=== PATIENT | male | born 1945 | race Caucasian/White ===

== ENCOUNTER 2016-07-29 20:13 | Inpatient (IN) | payer OTHER ==
[~2016-07-29] VITALS: Ht 177.8 cm; Wt 81.6 kg
--- NOTE | ~2016-07-29 | EKG ---
[place], [place] ELECTROCARDIOGRAM REPORT NAME: ABBY ARAIZA UNIT #: [id number] ROOM: [facility] DOCTOR: KAILEE ENGLISH MD BIRTHDATE: [birth year] DOS: 07/29/2016 TIME: 20:35 p.m. Normal sinus rhythm at rate 77. Leftward axis. Early transition. Borderline electrocardiogram. KAILEE ENGLISH MD CM:EKGRPT:ELECTROCARDIOGRAM REPORT 13 [phone] KAILEE ENGLISH MD
[~2016-07-29 20:13] MED LIST: DAYPRO600 M1 PO; FLEXERIL10 MG PO; IRON TABLET; KEFLEX250 MG PO; LEVOFLOXACIN500 MG PO; OMEPRAZOLE20 MG PO; PERCOCET 325 MG1 TA7 PO; PRILOSEC20 MG PO; ROBAXIN750 MG PO; VICODIN 5/500 505 MG PO; VICODIN 500 MG-1 TAB PO
[2016-07-29 20:26] VITALS: BP 141/88
[2016-07-29] MEDS ORDERED: ASPIR LOW81 MG PO (20:28)
[2016-07-29] MEDS ORDERED: CHOLESTEROL MED PO (20:28)
[2016-07-29] MEDS ORDERED: EFFIENT5 MG PO (20:28)
[2016-07-29 20:37] LABS: BASO % 0.4 % (0.0-1.0); EOS # 0.2 10*3/uL (0.0-0.4); EOS % 2.8 % (1.0-4.0); HEMOGLOBIN 14.4 g/dl (14.0-18.0); LYMPH # 2.8 10*3/uL (1.3-4.4); LYMPH % 39.6 % (27.0-41.0); MEAN CELL VOLUME 92.7 fl (80.0-94.0); MEAN CORPUSCULAR HGB 31.8 pg (27.0-31.0); MEAN CORPUSCULAR HGB CONC 34.3 g/dl (33.0-37.0); MONO # 0.7 10*3/uL (0.1-1.0); MONO % 10.1 % (3.0-9.0); NEUT # 3.3 10*3/uL (2.3-7.9); PLATELET COUNT AUTOMATED 124 10*3/uL (130-400); RED BLOOD COUNT 4.53 10*6/uL (4.50-5.90); RED CELL DISTRI WIDTH 12.9 % (0-14.5); WHITE BLOOD COUNT 7.1 10*3/uL (4.8-10.8)
[2016-07-29 20:49] LABS: PROTHROMBIN TIME 10.6 SECONDS (9.0-12.4)
[2016-07-29 20:54] LABS: ALBUMIN 3.7 gm/dl (3.1-4.5); ALKALINE PHOSPHATASE 92 U/L (45-117); BILIRUBIN, TOTAL 0.2 mg/dl (0.2-1.0); CARBON DIOXIDE 28 mmol/L (21-32); CHLORIDE 106 mmol/L (98-107); EST GLOM FILT AFRICAN AMERICAN > 60 ml/min; GLUCOSE 114 mg/dL (65-99); MAGNESIUM 2.1 mg/dL (1.5-2.1); POTASSIUM 3.8 mmol/L (3.5-5.1); SGOT/AST 31 IU/L (3-35); SGPT/ALT 28 U/L (12-78); SODIUM 143 mmol/L (136-145); TOTAL PROTEIN 7.1 gm/dL (6.4-8.2)
[2016-07-29 20:56] LABS: BUN 12 mg/dl (7-24)
[2016-07-29 20:58] LABS: TROPONIN I < 0.015 ng/ml (<0.045)
[2016-07-29 21:07] VITALS: BP 131/67
[2016-07-29 22:01] VITALS: BP 130/62
[2016-07-29 22:29] VITALS: BP 127/69
[2016-07-29 23:06] VITALS: BP 136/64
[2016-07-30 00:25] VITALS: BP 148/82
[2016-07-30 04:21] VITALS: BP 113/69
[2016-07-30 06:04] VITALS: BP 151/76
[2016-07-30 07:23] VITALS: BP 100/60
== END 2016-07-30 10:04 | disposition home or self-care (01) | DRG 391 ==
LOC: ED 20:13 → EDHOLD 21:51
PROVIDERS: Emergency Medicine
DX: K21.9 Gastro-esophageal reflux disease without esophagitis (principal); I21.3 ST elevation (STEMI) myocardial infarction of unspecified site; I25.2 Old myocardial infarction; I25.10 Atherosclerotic heart disease of native coronary artery without angina pectoris; R07.89 Other chest pain; Z95.5 Presence of coronary angioplasty implant and graft; Z87.891 Personal history of nicotine dependence; Z82.49 Family history of ischemic heart disease and other diseases of the circulatory system; Z79.82 Long term (current) use of aspirin; Z88.8 Allergy status to other drugs, medicaments and biological substances

== ENCOUNTER → 2017-02-08 | Outpatient (CLI) | payer OTHER ==
[~2017-02-08] MED LIST changes: +ASPIR LOW81 MG PO; +CHOLESTEROL MED PO; +EFFIENT5 MG PO
== END | disposition home or self-care (01) ==
LOC: CARD 01:09
DX: I21.4 Non-ST elevation (NSTEMI) myocardial infarction (principal)

== ENCOUNTER → 2019-02-22 | Day surgery (SDC) | payer OTHER ==
[~2019-02-22] VITALS: Ht 170.1 cm; Wt 70.3 kg
[~2019-02-22] MED LIST changes: +PRILOSEC20 M1 PO
--- NOTE | ~2019-02-22 | PROC NOTE ---
[place], [place] PROCEDURE NOTE [id number] UNIT #: [id number] ROOM: DOCTOR: BRODIE TORRES MD BIRTHDATE: [birth year] DOS: 02/22/2019 PROCEDURE: 1. Esophagogastroduodenoscopy and biopsy. 2. Colonoscopy. INDICATIONS: GERD and history of colon polyps. An informed consent was obtained from the patient after indication of procedure, the alternatives and potential complications were explained to him. PROCEDURE MEDICATION: Sedation was administered by Anesthesiology Department. Scope used was Olympus pediatric colonoscope variable stiffness GIF-180, depth of insertion was to the cecum, which was identified by the usual landmarks, appendiceal orifice, ileocecal valve and triangular fold, in addition to transillumination in the right lower quadrant. FINDINGS: After adequate sedation, the patient was placed in left lateral decubitus position. Upper endoscopy was performed first. The scope was introduced under direct visualization through the upper esophageal sphincter into the esophagus. Esophageal mucosa appeared normal with no ulcerations or strictures. Lower esophageal sphincter was identified at 38 cm from incisors, normal appearing Z line. Stomach was then intubated. Gastric mucosa inspected. Moderate gastritis was seen with no discrete ulcers or active bleeding. A TUNG test was performed from the gastric antrum and body. Retroflexed views in the fundus showed a small hiatal hernia. The pylorus was intubated easily. The duodenal bulb and descending duodenum were within normal range. The scope was then withdrawn after the stomach was decompressed. We then proceeded with the colonoscopy. Rectal examination showed a diminished sphincter tone and no external hemorrhoids. Scope was introduced into the rectum. We then advanced to the cecum with moderate difficulty due to fixed sigmoid loops and looping in the left colon. The prep was adequate. The patient had evidence of moderate left-sided diverticular disease, but no evidence of acute diverticulitis or diverticular hemorrhage. The remaining colon mucosa appeared otherwise normal with no evidence of polyps, ulcerations or obstructing lesions. Retroflexed views in the rectum showed grade 1 internal hemorrhoids. The scope was then withdrawn after the rectum was decompressed. The patient tolerated the procedures well. IMPRESSION: 1. Small hiatal hernia. 2. Gastritis, TUNG test performed. 3. Moderate left-sided diverticular disease. 4. No polyps seen. 5. Small internal hemorrhoids. PLAN: We will review the TUNG test results and treat the patient accordingly. Repeat screening colonoscopy advised in 5 years. Office followup will be scheduled in 2-3 weeks. [place], [place] PROCEDURE NOTE NAME: ABBY ARAIZA Abiola UNIT #: [id number] ROOM: DOCTOR: BRIAN KIM,BRODIE BIRTHDATE: [birth year] BRODIE TORRES MD CM:PROCNOTE:PROCEDURE NOTE [id number] BONNIE TORRES MD
[2019-02-22 08:06] VITALS: BP 137/72
[2019-02-22 09:21] VITALS: BP 102/64
[2019-02-22 09:35] VITALS: BP 127/64
[2019-02-22 09:51] VITALS: BP 121/69; BP 124/67
== END | disposition home or self-care (01) ==
LOC: SDC 02-19 09:30
DX: Z12.11 Encounter for screening for malignant neoplasm of colon (principal); K21.9 Gastro-esophageal reflux disease without esophagitis; K44.9 Diaphragmatic hernia without obstruction or gangrene; K57.30 Diverticulosis of large intestine without perforation or abscess without bleeding; K64.0 First degree hemorrhoids; K29.70 Gastritis, unspecified, without bleeding; E78.5 Hyperlipidemia, unspecified; I25.2 Old myocardial infarction; E78.00 Pure hypercholesterolemia, unspecified; Z98.890 Other specified postprocedural states; Z87.891 Personal history of nicotine dependence; Z95.5 Presence of coronary angioplasty implant and graft; Z79.899 Other long term (current) drug therapy; Z79.84 Long term (current) use of oral hypoglycemic drugs; Z86.010 Personal history of colon polyps; Z83.3 Family history of diabetes mellitus; Z82.49 Family history of ischemic heart disease and other diseases of the circulatory system
CPT/HCPCS: 00813; 43239; G0105

== ENCOUNTER 2021-12-01 21:13 | Emergency (ER) | payer OTHER ==
[~2021-12-01] VITALS: Ht 170.1 cm; Wt 59.4 kg
[2021-12-01] MEDS ORDERED: OXYCODONE HCL10 M1 PO (22:17)
[2021-12-01 22:43] LABS: BASO % 0.3 % (0.0-1.0); EOS % 0.5 % (1.0-4.0); HEMATOCRIT 32.7 % (42.0-52.0); LYMPH # 1.5 10*3/uL (1.3-4.4); LYMPH % 20.2 % (27.0-41.0); MEAN CELL VOLUME 94.2 fl (80.0-94.0); MEAN CORPUSCULAR HGB 32.9 pg (27.0-31.0); MEAN CORPUSCULAR HGB CONC 34.9 g/dl (33.0-37.0); MEAN PLATELET VOLUME 12.3 fl (9.6-12.3); MONO # 0.9 10*3/uL (0.1-1.0); MONO % 12.5 % (3.0-9.0); NEUT # 4.9 10*3/uL (2.3-7.9); NEUT % 66.4 % (47.0-73.0); PLATELET COUNT AUTOMATED 144 10*3/uL (130-400); RED BLOOD COUNT 3.47 10*6/uL (4.50-5.90); RED CELL DISTRI WIDTH 12.2 % (0-14.5); WHITE BLOOD COUNT 7.4 10*3/uL (4.8-10.8)
[2021-12-01 23:05] LABS: ALKALINE PHOSPHATASE 63 U/L (45-117); BUN 14 mg/dl (7-24); CHLORIDE 100 mmol/L (98-107); CREATININE 0.87 mg/dL (0.70-1.30); POTASSIUM 3.8 mmol/L (3.5-5.1); SGOT/AST 12 IU/L (3-35); SGPT/ALT 12 U/L (12-78); SODIUM 132 mmol/L (136-145); TOTAL PROTEIN 7.1 gm/dL (6.4-8.2)
[2021-12-02] MEDS ORDERED: ZITHROMAX250 MG PO (01:15)
== END 2021-12-02 01:11 | disposition home or self-care (01) ==
LOC: ED 21:13
PROVIDERS: Emergency Medicine
DX: J18.9 Pneumonia, unspecified organism (principal); Z20.822 Contact with and (suspected) exposure to COVID-19; Z79.899 Other long term (current) drug therapy; I25.2 Old myocardial infarction; I25.10 Atherosclerotic heart disease of native coronary artery without angina pectoris; Z87.891 Personal history of nicotine dependence; Z98.890 Other specified postprocedural states